=== PATIENT | female | born 1985 | race Caucasian/White ===

== ENCOUNTER 2017-09-08 12:30 | Emergency (ER) | payer MEDICAID ==
[2017-09-08] MEDS: HYDROCODONE/APAP (5/325) TAB PO (14:01)
== END 2017-09-08 15:30 | disposition home or self-care (01) ==
LOC: FTE 12:30
DX: S49.91XA Unspecified injury of right shoulder and upper arm, initial encounter (principal); W18.39XA Other fall on same level, initial encounter; Y92.9 Unspecified place or not applicable
CPT/HCPCS: 73000; 73030-RT; 99283-25

== ENCOUNTER 2019-02-12 10:51 | Emergency (ER) | payer MEDICAID ==
[2019-02-12] MEDS: LIDOCAINE/MYLANTA 40 ML BTL PO (11:13)
[2019-02-12] MEDS: BELLADONNA/PHENOBARBITAL TAB PO (11:13)
[2019-02-12] MEDS: ONDANSETRON (ODT) 4 MG TAB ODT (12:00)
[2019-02-12] MEDS: morphine 4 MG/ML VIAL IM (12:00)
== END 2019-02-12 12:10 | disposition home or self-care (01) ==
LOC: FTE 12:10
DX: R10.13 Epigastric pain (principal)
CPT/HCPCS: 81025; 96372; 99284-25